=== PATIENT | female | born 1935 | race Caucasian/White ===

== ENCOUNTER → 2023-07-13 12:19 | Outpatient (REF) | payer MEDICARE, SELFPAY ==
[2023-07-13 13:36] LABS: % Basophils 0.6 % (0-2); % Eosinophils 3.9 % (0-6); % Immature Granulocytes 0.4 % (0-0.5); % Lymphocytes 26.7 % (20.5-51.1); % Monocytes 7.6 % (1.7-9.3); % Neutrophils 60.8 % (42.2-75.2); Absolute Basophils 0.1 10^3/uL (0-0.2); Absolute Eosinophils 0.3 10^3/uL (0-0.7); Absolute Lymphocytes 2.2 10^3/uL (1.2-3.4); Absolute Monocytes 0.6 10^3/uL (0.1-0.6); Absolute Neutrophils 4.9 10^3/uL (1.4-6.5); Hematocrit 28.6 % (37.0-47.0); Hemoglobin 9.5 g/dL (12.0-16.0); Mean Corp Hgb Conc. 33.2 g/dL (33.0-37.0); Mean Corpuscular Hgb 31.6 pg (27.0-31.0); Nucleated Red Blood Cells % 0 %; Platelet Count 329 10^3/uL (130-400); Red Blood Cell Count 3.01 10^6/uL (4.20-5.40); Red Cell Dist. Width 16.4 % (11.5-14.5); White Blood Cell Count 8.1 10^3/uL (4.8-10.8)
[2023-07-13 13:49] LABS: ALT (SGPT) 37 U/L (0-35); AST (SGOT) 27 U/L (14-36); Albumin 3.3 g/dl (3.5-5.0); Alkaline Phosphatase 50 U/L (38-126); Blood Urea Nitrogen 29 mg/dl (7-17); Calcium 9.1 mg/dl (8.4-10.2); Carbon Dioxide 25 mmol/L (22-30); Chloride 99 mmol/L (98-107); Glucose 92 mg/dl (70-99); Potassium 5.2 mmol/L (3.5-5.1); Sodium 130 mmol/L (135-145); Total Bilirubin 0.6 mg/dl (0.2-1.3); Total Protein 5.5 g/dl (6.3-8.2); eGFR > 60.00
[2023-07-13 14:02] LABS: Erythrocyte Sed Rate 35 mm/hour (0-20)
== END ==
LOC: OLABPV 12:19
PROVIDERS: ATTENDING PHYSICIAN Internal Medicine Rheumatology
DX: M06.09 Rheumatoid arthritis without rheumatoid factor, multiple sites (principal); E78.00 Pure hypercholesterolemia, unspecified
CPT/HCPCS: 36415; 80053; 85025; 85652; 86140

== ENCOUNTER → 2023-07-23 13:49 | Outpatient (REF) | payer MEDICARE, SELFPAY | LOC: HWRAD 13:49 | PROVIDERS: ATTENDING PHYSICIAN Nurse Practitioner Family; FAMILY PHYSICIAN Family Medicine | DX: M81.0 Age-related osteoporosis without current pathological fracture (principal); Z01.818 Encounter for other preprocedural examination | CPT/HCPCS: 77080 ==

== ENCOUNTER → 2023-08-10 11:18 | Outpatient (REF) | payer MEDICARE, SELFPAY ==
[2023-08-10 12:10] LABS: % Basophils 0.5 % (0-2); % Eosinophils 3.4 % (0-6); % Immature Granulocytes 0.2 % (0-0.5); % Lymphocytes 26.7 % (20.5-51.1); % Monocytes 8.9 % (1.7-9.3); % Neutrophils 60.3 % (42.2-75.2); ALT (SGPT) 37 U/L (0-35); AST (SGOT) 33 U/L (14-36); Absolute Eosinophils 0.3 10^3/uL (0-0.7); Absolute Lymphocytes 2.3 10^3/uL (1.2-3.4); Absolute Monocytes 0.8 10^3/uL (0.1-0.6); Absolute Neutrophils 5.2 10^3/uL (1.4-6.5); Albumin 4.2 g/dl (3.5-5.0); Alkaline Phosphatase 58 U/L (38-126); Blood Urea Nitrogen 27 mg/dl (7-17); Calcium 9.6 mg/dl (8.4-10.2); Carbon Dioxide 24 mmol/L (22-30); Chloride 101 mmol/L (98-107); Glucose 86 mg/dl (70-99); Hematocrit 32.6 % (37.0-47.0); Hemoglobin 11.1 g/dL (12.0-16.0); Iron 130 ug/dl (37-170); Mean Corpuscular Hgb 31.9 pg (27.0-31.0); Mean Corpuscular Volume 93.7 fL (81.0-99.0); Mean Platelet Volume 11.3 fL (7.4-10.4); Nucleated Red Blood Cells % 0 %; Platelet Count 347 10^3/uL (130-400); Potassium 4.8 mmol/L (3.5-5.1); Red Blood Cell Count 3.48 10^6/uL (4.20-5.40); Red Cell Dist. Width 15.3 % (11.5-14.5); Sodium 131 mmol/L (135-145); Total Bilirubin 0.5 mg/dl (0.2-1.3); Total Protein 6.6 g/dl (6.3-8.2); White Blood Cell Count 8.5 10^3/uL (4.8-10.8); eGFR > 60.00
[2023-08-10 12:20] LABS: Percent Saturation 45 % (20-50); Total Iron Binding Capacity 287 ug/dl (265-497)
== END ==
LOC: OLABPV 11:18
PROVIDERS: ATTENDING PHYSICIAN Family Medicine; REFERRING PHYSICIAN Student in an Organized Health Care Education/Training Program
DX: E87.1 Hypo-osmolality and hyponatremia (principal); D50.9 Iron deficiency anemia, unspecified
CPT/HCPCS: 36415; 80053; 82728; 83540; 83550; 85025

== ENCOUNTER → 2023-09-20 12:57 | Outpatient (REF) | payer MEDICARE, SELFPAY | LOC: RAD 12:57 | PROVIDERS: ATTENDING PHYSICIAN Physician Assistant | DX: R10.32 Left lower quadrant pain (principal); Z87.19 Personal history of other diseases of the digestive system; R11.0 Nausea; R19.7 Diarrhea, unspecified | CPT/HCPCS: 74177; Q9967 ==

== ENCOUNTER → 2023-10-16 11:41 | Outpatient (REF) | payer MEDICARE, SELFPAY ==
[2023-10-16 13:31] LABS: Potassium 4.9 mmol/L (3.5-5.1)
== END ==
LOC: OLABPV 11:41
PROVIDERS: ATTENDING PHYSICIAN Family Medicine
DX: E87.5 Hyperkalemia (principal)
CPT/HCPCS: 36415; 84132

== ENCOUNTER → 2024-02-04 06:21 | Day surgery (SDC) | payer MEDICARE, SELFPAY | LOC: GI 06:21 | PROVIDERS: ATTENDING PHYSICIAN Internal Medicine Gastroenterology | DX: K64.8 Other hemorrhoids (principal); K57.30 Diverticulosis of large intestine without perforation or abscess without bleeding; D12.2 Benign neoplasm of ascending colon | CPT/HCPCS: 45380; 88305 ==

== ENCOUNTER → 2024-04-25 12:41 | Outpatient (REF) | payer MEDICARE, SELFPAY | LOC: RAD 12:41 | PROVIDERS: ATTENDING PHYSICIAN Surgery Vascular Surgery; FAMILY PHYSICIAN Family Medicine | DX: I77.9 Disorder of arteries and arterioles, unspecified (principal) | CPT/HCPCS: 93922; 93925 ==

== ENCOUNTER → 2024-07-02 11:13 | Outpatient (REF) | payer MEDICARE, SELFPAY ==
[2024-07-02 11:54] LABS: % Basophils 0.9 % (0-2); % Eosinophils 2.5 % (0-6); % Immature Granulocytes 0.3 % (0-0.5); % Monocytes 8.2 % (1.7-9.3); % Neutrophils 63.1 % (42.2-75.2); Absolute Basophils 0.1 10^3/uL (0-0.2); Absolute Eosinophils 0.3 10^3/uL (0-0.7); Absolute Lymphocytes 2.6 10^3/uL (1.2-3.4); Absolute Monocytes 0.9 10^3/uL (0.1-0.6); Absolute Neutrophils 6.6 10^3/uL (1.4-6.5); Hematocrit 34.5 % (37.0-47.0); Hemoglobin 11.3 g/dL (12.0-16.0); Mean Corp Hgb Conc. 32.8 g/dL (33.0-37.0); Mean Corpuscular Hgb 30.4 pg (27.0-31.0); Mean Corpuscular Volume 92.7 fL (81.0-99.0); Mean Platelet Volume 11.5 fL (7.4-10.4); Nucleated Red Blood Cells % 0 %; Platelet Count 285 10^3/uL (130-400); Red Blood Cell Count 3.72 10^6/uL (4.20-5.40); Red Cell Dist. Width 12.3 % (11.5-14.5); White Blood Cell Count 10.5 10^3/uL (4.8-10.8)
[2024-07-02 12:25] LABS: ALT (SGPT) 48 U/L (0-35); AST (SGOT) 35 U/L (14-36); Albumin 4.3 g/dl (3.5-5.0); Alkaline Phosphatase 45 U/L (38-126); Blood Urea Nitrogen 23 mg/dl (7-17); Calcium 9.4 mg/dl (8.4-10.2); Carbon Dioxide 24 mmol/L (22-30); Chloride 99 mmol/L (98-107); Glucose 97 mg/dl (70-99); LDH 150 U/L (120-246); Sodium 133 mmol/L (135-145); Total Bilirubin 0.4 mg/dl (0.2-1.3); Total Protein 6.5 g/dl (6.3-8.2); eGFR > 60.00
== END ==
LOC: OLABPV 11:13
PROVIDERS: ATTENDING PHYSICIAN Dermatology
DX: Z85.820 Personal history of malignant melanoma of skin (principal)
CPT/HCPCS: 36415; 80053; 83615; 85025

== ENCOUNTER → 2024-11-06 08:54 | Outpatient (REF) | payer MEDICARE, SELFPAY | LOC: RAD 08:54 | PROVIDERS: ATTENDING PHYSICIAN Family Medicine | DX: I73.9 Peripheral vascular disease, unspecified (principal) | CPT/HCPCS: 93922; 93925 ==

== ENCOUNTER → 2024-12-19 11:53 | Outpatient (REF) | payer MEDICARE, SELFPAY ==
[2024-12-19 12:58] LABS: ALT (SGPT) 32 U/L (0-35); AST (SGOT) 27 U/L (14-36); Albumin 4.6 g/dl (3.5-5.0); Alkaline Phosphatase 47 U/L (38-126); Blood Urea Nitrogen 22 mg/dl (7-17); Calcium 9.3 mg/dl (8.4-10.2); Carbon Dioxide 24 mmol/L (22-30); Chloride 102 mmol/L (98-107); Glucose 95 mg/dl (70-99); HDL Cholesterol 54 mg/dl; LDL Cholesterol, Calculated 81 mg/dl; Potassium 5.1 mmol/L (3.5-5.1); Sodium 133 mmol/L (135-145); Total Protein 6.9 g/dl (6.3-8.2); Very Low Density Lipoprotein 19 mg/dl (0-30); eGFR > 60.00
== END ==
LOC: OLABPV 11:53
PROVIDERS: ATTENDING PHYSICIAN Family Medicine
DX: I10 Essential (primary) hypertension (principal); E78.00 Pure hypercholesterolemia, unspecified; R79.9 Abnormal finding of blood chemistry, unspecified
CPT/HCPCS: 36415; 80053; 80061

== ENCOUNTER → 2025-01-16 10:16 | Outpatient (REF) | payer MEDICARE, SELFPAY | LOC: RAD 10:16 | PROVIDERS: ATTENDING PHYSICIAN Surgery Vascular Surgery; FAMILY PHYSICIAN Family Medicine | DX: I73.9 Peripheral vascular disease, unspecified (principal) | CPT/HCPCS: 93922 ==

== ENCOUNTER → 2025-02-03 12:11 | Outpatient (REF) | payer MEDICARE, SELFPAY | LOC: RAD 12:11 | PROVIDERS: ATTENDING PHYSICIAN Registered Nurse; FAMILY PHYSICIAN Family Medicine | DX: I77.9 Disorder of arteries and arterioles, unspecified (principal) | CPT/HCPCS: 75635; Q9967 ==

== ENCOUNTER 2025-03-02 17:42 | Emergency (ER) | payer MEDICARE, SELFPAY ==
[2025-03-02 17:44] VITALS: BP 216/79
--- NOTE | 2025-03-02 17:50 | ED.GENMED ---
History of Present Illness
<Riley Lemus Marco, - Last Filed: 03/02/25 22:02>
General
Chief Complaint: Skin Surface Trauma
Time Seen by Provider: 03/02/25 17:50
History of Present Illness
History of Present Illness:
FOCUSED PAST MEDICAL HISTORY
- High blood pressure, hyperlipidemia
REVIEW OF OLD RECORDS
- I reviewed records, the patient had a colonoscopy in January 2024
Note:
CHIEF COMPLAINT(S)
Fall with head trauma and chest wall hematoma.
HISTORY OF PRESENT ILLNESS
The patient is an 89-year-old female who presented to the emergency department after experiencing a fall. She reported tripping on the curb while leaving the hospital premises after visiting her brother. This led to her falling and striking her
head. Post-fall, the patient noted a palpable lump on her head, and upon examination, she also had a noticeable hematoma on the left side of her chest wall. The patient states she is not experiencing much pain but is aware of the lump. She denies
any difficulty breathing or pain upon palpation of the chest, abdomen, or neck. She mentioned that she takes baby aspirin due to peripheral artery disease. There is no report of leg injury from the fall, and she retains full mobility in her legs.
The patient did not express significant discomfort and declined any pain management at this time. Furthermore, she reported an additional issue with her finger, suspecting it to be either dislocated or broken.
SOCIAL DETERMINANTS AFFECTING HEALTH
The patient reported visiting her brother in the hospital, indicating potential family support.
MEDICATIONS
The patient is currently taking baby aspirin for peripheral artery disease.
PHYSICAL EXAM
- General: Well appearing in no distress
- Head: The patient has extensive dried blood on the face and there was an L-shaped 4 cm laceration near the left eyebrow
- C-spine: No midline c-spine tenderness; normal AROM of C-spine
- Back: Normal AROM thoracolumbar spine
- HEENT: Moist oral mucosa, no blood
- Cardiovascular: No murmurs, normal heart rate, regular rhythm, there is no significant rib tenderness however there is a moderate size hematoma of the left anterior chest wall
- Pulmonary: No respiratory distress, breath sounds are clear and equal
- Abdomen: Soft with no peritoneal signs, no tenderness
- Neurologic: Excellent strength all extremities, no coordination deficits
- Psychiatric: Appropriate mental status, normal insight and judgement
- Extremities: Nontender, no edema, moves all extremities equally, deformity noted at the right fourth PIP consistent with dislocation
- Skin: No rash, no lesions
PROBLEM LIST
Acute Problems:
- Fall with head and chest trauma
- Dislocated finger
Chronic Problems:
- Peripheral artery disease
PLAN
1. Perform a computed tomography (CT) scan of the brain due to age and aspirin use to rule out possible intracranial bleeding.
2. Clean the head wound and prepare for suturing.
3. Order an X-ray to assess the reported dislocated or broken finger.
4. Monitor and manage the chest wall hematoma conservatively, as no current respiratory distress or significant pain is present.
DIFFERENTIAL DIAGNOSIS
The Differential Diagnosis includes, in no particular order and is not limited to:
- Traumatic brain injury
- Concussion
- Fractured rib
- Hemothorax
- Pneumothorax
- Soft tissue contusion
- Intracranial hemorrhage
- Dislocated finger
- Fractured finger
- Bruise or hematoma due to trauma
- Muscle sprain or strain
SUMMARY OF ENCOUNTER
This elderly female patient presented to the emergency department after experiencing a fall that resulted in head trauma and a dislocated finger. A CT scan revealed a subdural hematoma, and there was a suspicion of an epidural hemorrhage.
Additionally, a dislocated right fourth proximal interphalangeal (PIP) joint was confirmed. The patient had a large facial laceration, possibly needing attention during the transfer. A colleague ER physician reduced the dislocated finger and
communicated with neurosurgery and trauma services at [facility] regarding the patients condition for further management. The patient is on baby aspirin, increasing the complexity of her head injury. Due to the potential severity of
her head injuries requiring specialized care, the decision was made to transfer her to [facility].
DISPOSITION
Transfer to [facility].
ASSESSMENT
The patient has a subdural hematoma, a possibly epidural hemorrhage, facial laceration, and a dislocated right fourth PIP joint.
PLAN
Transfer the patient to [facility] for evaluation and possible intervention by neurosurgery and trauma specialists for her intracranial hemorrhages.
MEDICAL DECISION MAKING
-Complexity of Data Reviewed: Chronic conditions affecting care include peripheral artery disease. Differential diagnosis includes traumatic brain injury, concussion, intracranial hemorrhage, and dislocated finger.
-Data:
Category [address] scan of the head revealed a subdural hematoma, with a suspicion of epidural hemorrhage.
Category 3
Discussion of management with neurosurgery and trauma team at [facility] was conducted by an ER physician colleague for further specialized care.
DIAGNOSIS
Subdural hematoma (ICD-10: S06.5)
Dislocated right fourth finger, PIP joint (ICD-10: S63.141A)
Possible epidural hemorrhage (ICD-10: S06.4)
Facial laceration (ICD-10: S01.81XA)
Chronic peripheral artery disease (ICD-10: I73.9)
White count is 19.7, hemoglobin normal, sodium slightly low at 128
Past History
<Riley Lara DO - Last Filed: 03/02/25 22:02>
Past History
ED Past Medical History: HTN and Hypercholesterolemia
ED Past Surgical History: Negative Cardiac
Social History
Tobacco: Non-smoker
Alcohol: None
Drug: None
Personal:
Living: alone
Employment: Retired
Family History
Family History: Other (Noncontributory)
Phy Exam
<Riley Lara DO - Last Filed: 03/02/25 22:02>
Physical Exam
Physical Exam:
See HPI
Course
<Riley Lemus Marco, DO - Last Filed: 03/02/25 22:02>
Orders/Labs/Results
Orders:
Orders
03/02/25 18:06
CT Chest W/o Iv Contrast Urgent
Comment:
Reason For Exam: large hematoma L ACW, trauma
CT Head W/o Iv Contrast Urgent
Comment:
Reason For Exam: head trauma on aspirin
CR Finger(s)/thumb Min 2 Vw Rt Urgent
Comment:
Reason For Exam: trauma suspect disloc PIP
03/02/25 19:04
CT Orbits W/o Iv Contrast Urgent
Comment:
Reason For Exam: fall
03/02/25 19:36
Labetalol HCl [Trandate] 10 mg IV NOW STA
03/02/25 19:37
Electrocardiogram (*1) Urgent
Reason for Study: Fatigue / Weakness
EKG- Treatment ONCE
03/02/25 20:08
Complete Blood Count/With Diff Urgent
Comprehensive Metabolic Panel Urgent
PTT Urgent
Prothrombin Time Urgent
03/02/25 20:12
Urinalysis Reflex To Culture Urgent
Date Specimen was Collected: 03/02/25
Time Specimen was Collected: 20:11
Urine Microscopic Reflex Cult Urgent
Urine Culture Urgent
JOSÉ Source: U
Specimen Description:
Date Specimen was Collected: 03/02/25
Time Specimen was Collected: 20:11
Abnormal Lab Results
03/02/25 03/02/25
20:08 20:12
WBC 19.7 H 10^3/uL
(4.8-10.8)
RBC 3.86 L 10^6/uL
(4.20-5.40)
Hct 34.7 L %
(37.0-47.0)
MCH 31.1 H pg
(27.0-31.0)
MPV 10.7 H fL
(7.4-10.4)
Abs Immat Gran (auto) 0.1 H 10^3/uL
(0-0.05)
Absolute Neuts (auto) 16.1 H 10^3/uL
(1.4-6.5)
Absolute Monos (auto) 1.3 H 10^3/uL
(0.1-0.6)
Neutrophils % 81.4 H %
(42.2-75.2)
Lymphocytes % 10.3 L %
(20.5-51.1)
Sodium 128 L mmol/L
(135-145)
Chloride 96 L mmol/L
(98-107)
BUN 23 H mg/dl
(7-17)
Glucose 120 H mg/dl
(70-99)
ALT 41 H U/L
(0-35)
Urine Ketones 2+ A
(Negative)
Ur Occult Blood Reflex 1+ A
(Negative)
Leukocyte Esterase Rfl 2+ A
(Negative)
Urine WBC (Reflex) 26-30 A /HPF
(0-5)
Urine Albumin (Reflex) 2+ A
(Neg - Trace)
03/02/25 20:08
03/02/25 20:08
Vital Signs
Initial and Last Documented VS:
Initial Vital Signs
Temp Pulse Resp BP Pulse Ox
36.6 C 70 20 216/79 95
03/02/25 17:44 03/02/25 17:44 03/02/25 17:44 03/02/25 17:44 03/02/25 17:44
Last Documented Vital Signs
Temp Pulse Resp BP Pulse Ox
36.6 C 63 19 184/58 98
03/02/25 17:44 03/02/25 20:30 03/02/25 20:30 03/02/25 20:30 03/02/25 20:30
<Kishor Bryson MD - Last Filed: 03/02/25 21:14>
Orders/Labs/Results
Orders:
Orders
03/02/25 18:06
CT Chest W/o Iv Contrast Urgent
Comment:
Reason For Exam: large hematoma L ACW, trauma
CT Head W/o Iv Contrast Urgent
Comment:
Reason For Exam: head trauma on aspirin
CR Finger(s)/thumb Min 2 Vw Rt Urgent
Comment:
Reason For Exam: trauma suspect disloc PIP
03/02/25 19:04
CT Orbits W/o Iv Contrast Urgent
Comment:
Reason For Exam: fall
03/02/25 19:36
Labetalol HCl [Trandate] 10 mg IV NOW STA
03/02/25 19:37
Electrocardiogram (*1) Urgent
Reason for Study: Fatigue / Weakness
EKG- Treatment ONCE
03/02/25 20:08
Complete Blood Count/With Diff Urgent
Comprehensive Metabolic Panel Urgent
PTT Urgent
Prothrombin Time Urgent
03/02/25 20:12
Urinalysis Reflex To Culture Urgent
Date Specimen was Collected: 03/02/25
Time Specimen was Collected: 20:11
Urine Microscopic Reflex Cult Urgent
Urine Culture Urgent
JOSÉ Source: U
Specimen Description:
Date Specimen was Collected: 03/02/25
Time Specimen was Collected: 20:11
Abnormal Lab Results
03/02/25 03/02/25
20:08 20:12
WBC 19.7 H 10^3/uL
(4.8-10.8)
RBC 3.86 L 10^6/uL
(4.20-5.40)
Hct 34.7 L %
(37.0-47.0)
MCH 31.1 H pg
(27.0-31.0)
MPV 10.7 H fL
(7.4-10.4)
Abs Immat Gran (auto) 0.1 H 10^3/uL
(0-0.05)
Absolute Neuts (auto) 16.1 H 10^3/uL
(1.4-6.5)
Absolute Monos (auto) 1.3 H 10^3/uL
(0.1-0.6)
Neutrophils % 81.4 H %
(42.2-75.2)
Lymphocytes % 10.3 L %
(20.5-51.1)
Sodium 128 L mmol/L
(135-145)
Chloride 96 L mmol/L
(98-107)
BUN 23 H mg/dl
(7-17)
Glucose 120 H mg/dl
(70-99)
ALT 41 H U/L
(0-35)
Urine Ketones 2+ A
(Negative)
Ur Occult Blood Reflex 1+ A
(Negative)
Leukocyte Esterase Rfl 2+ A
(Negative)
Urine WBC (Reflex) 26-30 A /HPF
(0-5)
Urine Albumin (Reflex) 2+ A
(Neg - Trace)
03/02/25 20:08
03/02/25 20:08
Vital Signs
Initial and Last Documented VS:
Initial Vital Signs
Temp Pulse Resp BP Pulse Ox
36.6 C 70 20 216/79 95
03/02/25 17:44 03/02/25 17:44 03/02/25 17:44 03/02/25 17:44 03/02/25 17:44
Last Documented Vital Signs
Temp Pulse Resp BP Pulse Ox
36.6 C 63 19 184/58 98
03/02/25 17:44 03/02/25 20:30 03/02/25 20:30 03/02/25 20:30 03/02/25 20:30
Procedures
<Kishor Bryson MD - Last Filed: 03/02/25 21:14>
Laceration Closure
Left Eye brow:
Status of Wound: dirty
Size of Wound in cm: 5
Description of Wound Edges: ragged and surrounded by abrasion
Preparation: cleaned with saline
Anesthesia: 1% Lidocaine
Revision/Debridement: extensive revision and debrided
Wound exploration: extensive cleaning of contaminated wound
Type of Closure: layered closure
Skin Closure Material: 6-0 nylon (x8) and 6-0 vicryl (x3)
Number of sutures: 11
Splinting/Sling Placement
Right Fourth Finger:
Procedure completed by: Kishor Bryson MD
Pre-splint extermity exam: neurovascular intact
Type of splint: aluminium finger
Splint material: aluminum-foam
Splint checked by provider?: Yes
Normal distal neurovascular exam?: Yes
Joint/Fracture Reduction
Right Fourth Finger:
Indication for procedure:: dislocation PIP joint
Procedure completed by: Kishor Bryson MD
If no, reason: Emergency procedure
Joint reduced: without anesthesia
Injury was: closed
Further treatement: no treatment needed
Post reduction exam: stable
Normal distal neurovascular exam?: Yes
<Riley Lara DO - Last Filed: 03/02/25 22:02>
*Pulse Oximetry
SaO2: 95
Oxygen Mode of Delivery: Room air
Patient hypoxic: no
<Kishor Bryson MD - Last Filed: 03/02/25 21:14>
*Critical Care Note
Total Time (30-74mins, 75-104mins- exclusive of procedures): 33
comment:
Critical care statement: A total of 33 minutes of critical care time was provided for this patient. This includes management of unstable vital signs, evaluation of the patient at bedside, frequent reassessment, discussion with
consultants/hospitalist, and review of pertinent medical records. This time was separate from time utilized to perform any aforementioned documented procedures
<Kishor Bryson MD - Last Filed: 03/02/25 21:14>
Update Note
Update Note:
Update: I helped to facilitate care for this critical patient while here in the ER in concert with her attending physician while he was resuscitating another critical patient. Briefly this is an 89-year-old female who had a trip and fall today with
head strike. She has left facial ecchymosis and a left eyebrow laceration. She has some bruising to the left chest wall. She has an injury to the right hand. She is on aspirin but no other blood thinners.
I received a call from the radiologist that the patient's imaging today is positive for subdural hemorrhage with questionable component of epidural hemorrhage. She also has a left breast hematoma but no rib fractures, negative CT orbit. Updated
family at bedside. Will plan to transfer to trauma service at [facility]. Discussed with neurosurgeons at [place] they agree with transfer. She is hypertensive here we will place an IV send basic labs and treat hypertension with IV
labetalol. Discussed the case with the trauma physician (Dr. Curtis) at [facility] who accepted patient for transfer. Monitor very closely pending transport. Currently awake and alert with a GCS of 15.
Laceration irrigated and repaired as documented procedure note. Patient reports tetanus up-to-date. Finger dislocation noted�reduced at bedside and aluminum splint applied by me. Handoff given to transport team�transferred to [facility].
ED Attending Note
<Riley Lara DO - Last Filed: 03/02/25 22:02>
-
Portions of this chart may have been created with voice recognition software.� Occasional wrong word or��sound alike� substitutions may have occurred due to the inherent limitations of voice recognition software.
Discharge Plan
Departure
Patient Disposition: Acute Care Hospital
Date of Disposition: 03/02/25
Time of Disposition: 19:40
Discharge Problem:
Acute subdural hematoma, Hematoma of left breast, Laceration of eyebrow, left, Dislocated finger
Prescriptions:
No Action
omeprazole 20 MG capsule,delayed release(DR/EC)
20 mg PO DAILY
Prolia 60 MG/ML syringe
60 mg SQ [id number]
Patient Comments:
06/12/2023, patient states last dose was in March.
ferrous sulfate [Feosol] 325 MG tablet
325 mg PO HS
aspirin 81 mg Tablet,Delayed Release (Dr/Ec)
81 mg PO HS
acetaminophen 650 mg Tablet Extended Release
1,300 mg PO DAILYPRN PRN (Reason: mild pain)
methotrexate sodium 2.5 mg Tablet
15 mg PO WEEKLY
Patient Comments:
06/12/23: pt to discuss with provider - pt has been taking 2.5 mg 6 days a week. pt to confirm with prescriber as medication is usually dose 6 tabs once weekely.
Rx Instructions:
06/13/23 counseled patient on taking the methotrexate as 6 x 2.5mg tabs as once dose one day a week. She should choose a day and just take all doses on same day.
folic acid 1 mg Tablet
1 mg PO .SEE BELOW
Patient Comments:
06/12/23: discussed with patient. She has been using 2.5 mg Daily(except for Mondays) SHe will call prescriber to clarify if she should be taking all 6 tablets once weekly
gabapentin 100 mg Capsule
200 mg PO HS
olmesartan 40 mg Tablet
40 mg PO DAILY
escitalopram oxalate 20 mg Tablet
20 mg PO HS
Align (B.infantis) 4 mg Capsule
4 mg PO DAILY
Centrum Silver Women 8 mg iron-400 mcg-50 mcg Tablet
1 tab PO DAILY
spironolactone 50 MG tablet
50 mg PO DAILY
amoxicillin-pot clavulanate 875-125 mg tablet
1 tab PO Q12H Qty: 10 0RF
Referrals:
Flavia Bradford CRNP [Family Provider, Vascular Surgery]
Hospital Transfer
Other hospital: [place]
I certify that the patient requires transfer: Yes
Discussed case with accepting physician: Dr. Curtis
Reason for transfer: availability of service and specialties available
Interventions
Interventions:
*Risk Screen - Suicide Last Done: 03/02/25 17:49
*General Assessment Last Done: 03/02/25 17:49
*Neglect/Abuse Screening Last Done: 03/02/25 17:49
*ED- Fall Risk Assessment Last Done: 03/02/25 20:41
*ED COVID-19 Vaccine History Last Done: 03/02/25 17:49
*Nursing Disposition Last Done: 03/02/25 20:41
ED-Skin Assessment Last Done: 03/02/25 18:30
Discharge Date and Time
Discharge Date/Time: 03/02/25 20:55
Print Language: GUAMANIAN
[2025-03-02 20:07] VITALS: BP 205/97
[2025-03-02] MEDS: TRANDATE 10 MG IV (20:11)
[2025-03-02 20:13] VITALS: BMI 24.2
[2025-03-02 20:15] VITALS: BP 178/69
[2025-03-02 20:26] LABS: Hematocrit 34.7 % (37.0-47.0); Hemoglobin 12.0 g/dL (12.0-16.0); Mean Corp Hgb Conc. 34.6 g/dL (33.0-37.0); Mean Corpuscular Volume 89.9 fL (81.0-99.0); Nucleated Red Blood Cells % 0 %; Platelet Count 306 10^3/uL (130-400); Red Cell Dist. Width 12.6 % (11.5-14.5)
[2025-03-02 20:30] VITALS: BP 184/58
[2025-03-02 20:31] LABS: Urine Character Clear (Clear)
[2025-03-02 20:38] LABS: ALT (SGPT) 41 U/L (0-35); AST (SGOT) 31 U/L (14-36); Albumin 5.0 g/dl (3.5-5.0); Alkaline Phosphatase 49 U/L (38-126); Blood Urea Nitrogen 23 mg/dl (7-17); Calcium 9.7 mg/dl (8.4-10.2); Carbon Dioxide 22 mmol/L (22-30); Chloride 96 mmol/L (98-107); Estimated Creatinine Clearance 47 ml/min; Glucose 120 mg/dl (70-99); Potassium 4.5 mmol/L (3.5-5.1); Sodium 128 mmol/L (135-145); Total Protein 7.3 g/dl (6.3-8.2); eGFR > 60.00
[2025-03-02 20:44] LABS: INR 0.97; PT 13.2 Sec (11.4-14.6)
[2025-03-02 20:45] LABS: APTT 26.2 Sec (23.4-35.0)
[2025-03-02 21:26] LABS: Urine Red Blood Cell 0-2 /HPF (0-2); Urine Squamous Cell 0-2 /LPF (Few); Urine White Cell 26-30 /HPF (0-5)
== END 2025-03-02 20:55 | disposition short-term general hospital (02) ==
LOC: EMR 17:42
PROVIDERS: Emergency Medicine; EMERGENCY PHYSICIAN Emergency Medicine; FAMILY PHYSICIAN Registered Nurse
DX: S06.5XAA Traumatic subdural hemorrhage with loss of consciousness status unknown, initial encounter (principal); S01.112A Laceration without foreign body of left eyelid and periocular area, initial encounter; S63.284A Dislocation of proximal interphalangeal joint of right ring finger, initial encounter; S20.219A Contusion of unspecified front wall of thorax, initial encounter; W01.0XXA Fall on same level from slipping, tripping and stumbling without subsequent striking against object, initial encounter; E78.00 Pure hypercholesterolemia, unspecified; I10 Essential (primary) hypertension; I73.9 Peripheral vascular disease, unspecified; Z79.82 Long term (current) use of aspirin
CPT/HCPCS: 26770; 99291; 12013; 96374; 70450; 70480; 71250; 73140; 80053; 81003; 81015; 85025; 85610; 85730; 87086

== ENCOUNTER → 2025-03-09 11:00 | Outpatient (REF) | payer OTHER, MEDICARE, SELFPAY ==
[2025-03-09 11:24] LABS: Hematocrit 28.4 % (37.0-47.0); Hemoglobin 9.7 g/dL (12.0-16.0); Mean Corp Hgb Conc. 34.2 g/dL (33.0-37.0); Mean Corpuscular Volume 91.6 fL (81.0-99.0); Platelet Count 336 10^3/uL (130-400); Red Cell Dist. Width 13.2 % (11.5-14.5)
[2025-03-09 11:34] LABS: Blood Urea Nitrogen 13 mg/dl (7-17); Calcium 8.5 mg/dl (8.4-10.2); Carbon Dioxide 24 mmol/L (22-30); Chloride 101 mmol/L (98-107); Glucose 87 mg/dl (70-99); Potassium 4.4 mmol/L (3.5-5.1); Sodium 131 mmol/L (135-145); eGFR > 60.00
== END ==
LOC: OLABP 11:00
PROVIDERS: ATTENDING PHYSICIAN Family Medicine
DX: T07.XXXD Unspecified multiple injuries, subsequent encounter (principal); S06.5XAD Traumatic subdural hemorrhage with loss of consciousness status unknown, subsequent encounter; W19.XXXD Unspecified fall, subsequent encounter; I10 Essential (primary) hypertension; E87.1 Hypo-osmolality and hyponatremia; D62 Acute posthemorrhagic anemia
CPT/HCPCS: 36415; 80048; 85027